=== PATIENT | male | born 1955 | race Two or more races ===

== ENCOUNTER 2016-05-23 07:30 | Inpatient (IN) | payer OTHER ==
[~2016-05-23] VITALS: Ht 172.7 cm; Wt 92.5 kg
[2016-09-18] VITALS (14 sets, daily range): BP systolic 129–143; BP diastolic 61–81
[2016-09-18] MEDS ORDERED: ceFAZolin sod 2 GM in D5W 110 ML IVPB ONE (07:00)
[2016-09-18] MEDS ORDERED: SIMVASTATIN10 MG ORAL (10:34)
[2016-09-18] MEDS ORDERED: JANUVIA100 MG ORAL (10:34)
[2016-09-18] MEDS ORDERED: GLIPIZIDE XL10 MG ORAL (10:42)
[2016-09-18] MEDS ORDERED: LISINOPRIL20 MG ORAL (10:42)
[2016-09-18] MEDS ORDERED: METFORMIN HCL1000 M3 PO (10:42)
[2016-09-18] MEDS ORDERED: NORVASC5 MG ORAL (10:42)
[2016-09-18] MEDS ORDERED: FARXIGA10 MG PO (10:42)
[2016-09-18] MEDS ORDERED: Bupivacaine w/Epi 0.5% 30ml Vial INJ ONE (10:53)
[2016-09-18] MEDS ORDERED: Bacitracin 50000 Units Vial ONE (10:53)
[2016-09-18] MEDS ORDERED: Vancomycin 1gm inj IVPB ONE (10:53)
[2016-09-18] MEDS ORDERED: Thrombin 5000 units TOPIC ONE (10:53)
[2016-09-18] MEDS ORDERED: Surgicel 4in x 8in TOPIC ONE (10:53)
[2016-09-18] MEDS ORDERED: LR 1000ml 1,000 ML IVLG SCH (11:10)
[2016-09-18] MEDS ORDERED: Hydromorphone 0.5mg/0.5ml inj IVP PRN (11:15)
[2016-09-18] MEDS ORDERED: Meperidine 25mg/0.5ml Inj IV PRN (11:15)
[2016-09-18] MEDS ORDERED: LORazepam Inj 2mg/ml 1ml IV PRN (11:15)
[2016-09-18] MEDS ORDERED: LR 1000ml 1,000 ML IV SCH (11:15)
--- NOTE | 2016-09-18 11:15 | Anethesia Preoperative Eval ---
Anesthesia Pre-op PMH/ROS General Date of Evaluation: September 18, 2016 Time of Evaluation: 10:45 Anesthesiologist: Mery ASA Score: ASA 3 Mallampati Score Class I : Soft palate, uvula, fauces, pillars visible Class II: Soft palate, uvula, fauces visible Class III: Soft palate, base of uvula visible Class IV: Only hard plate visible Mallampati Classification: Class II Surgeon: Bishop Diagnosis: HNP, radiculopathy Surgical Procedure: ACDF C5-6, C6-7 Family History: no anesthesia problems Allergies: Coded Allergies: No Known Allergies (Unverified , 09/17/16) Medications: see eMAR Past Medical History Cardiovascular: Reports: HTN, Denies: CAD, DC, arrhythmia, other, valve dz Pulmonary: Denies: COPD, CARLOS, asthma, other Gastrointestinal/Genitourinary: Denies: CRI, ESRD, GERD, other Neurologic/Psychiatric: Denies: CVA, TIA, dementia, depression/anxiety, other Endocrine: Reports: DM, Denies: hypothyroidism, other, steroids HEENT: Denies: [place] (L), [place] (R), cataract (L), cataract (R), glaucoma, other Hematology/Immune: Denies: DVT, anemia, bleeding disorder, other Musculoskeletal/Integumentary: Denies: DDD, DJD, OA, RA, edema, other PMH Narrative: HTN, DM PSxH Narrative: Eye surgery Anesthesia Pre-op Phys. Exam Physician Exam Last Vital Signs Date Time Temp Pulse Resp B/P Pulse Ox O2 Delivery O2 Flow Rate FiO2 09/18/16 10:15 98.2 79 18 142/67 96 Room Air Constitutional: NAD Neurologic: CN 2-12 intact Cardiovascular: RRR, no M/R/G Respiratory: CTA Gastrointestinal: S/NT/ND Airway Exam Mallampati Score: Class II MO: full ROM: full Dentures: lower, upper Anesthesia Pre-op A/P Labs No contraindication Studies Pre-op Studies: EKG - SR, RBBB Risk Assessment & Plan Assessment: HTN, diabetic male for ACDF Plan: GETA, Propofol drip Status Change Before Surgery: No Pre-Antibiotics Drug: Ancef Given Within 1 Hr of Incision: Yes CRISTIAN TEJADA M.D. September 18, 2016 11:15
--- NOTE | 2016-09-18 11:16 | Immediate Post-Op Evaluation ---
Immediate Post-Op Evalulation Immediate Post-Op Evalulation Procedure: ACDF C5-6, C6-7 Date of Evaluation: September 18, 2016 Time of Evaluation: 14:30 IV Fluids: 1300 Estimated Blood Loss: 40 Blood Pressure Systolic: 143 Blood Pressure Diastolic: 65 Pulse Rate: 96 Respiratory Rate: 20 O2 Sat by Pulse Oximetry: 100 Temperature (Fahrenheit): 97.8 Pain Score (1-10): 0 Nausea: No Vomiting: No Complications No complication Patient Status: reacts, patent, extubated, none Hydration Status: adequate Drug: Ancef Given Within 1 Hr of Incision: Yes Time Given: 12:20 CRISTIAN TEJADA M.D. September 18, 2016 11:16
[2016-09-18] MEDS ORDERED: NS Irrig 1000ml ONE (11:50)
[2016-09-18] MEDS ORDERED: Sterile Water Irrig 1000ml IRRIG ONE (11:50)
[2016-09-18] MEDS ORDERED: fentaNYL 100 mcg/2 mL IV ONE (11:50)
[2016-09-18] MEDS ORDERED: Propofol 10mg/ml 100ml btl IV ONE (11:50)
[2016-09-18] MEDS ORDERED: Midazolam 2mg/2ml Inj ONE (11:50)
[2016-09-18] MEDS ORDERED: Nimbex 2mg/ml Inj 10ML IVP ONE (11:50)
[2016-09-18] MEDS ORDERED: Glycopyrrolate 0.2mg/ml 1ml Vial ONE (11:50)
[2016-09-18] MEDS ORDERED: LR 1000ml ONE (11:50)
[2016-09-18] MEDS ORDERED: Neostigmine 1mg/ml 10ml Inj ONE (11:50)
--- NOTE | 2016-09-18 12:02 | Pre-Procedure Note/Attestation ---
Pre-Procedure Note/Attestation Complete Prior to Procedure Planned Procedure: not applicable Procedure Narrative: Anterior Cervical Discectomy and Fusion of C56 and 67 with allograft bone Indications for Procedure Pre-Operative Diagnosis: Herniation C56,67 Attestation I attest that I discussed the nature of the procedure; its benefits; risks and complications; and alternatives (and the risks and benefits of such alternatives ), prior to the procedure, with the patient (or the patient's legal in home sales representative). I attest that, if there was a reasonable possibility of needing a blood transfusion, the patient (or the patient's legal in home sales representative) was given the [facility] standardized written summary, pursuant to the [place] Blood Safety Act ([place] Health and Safety Code # 1645, as amended). I attest that I re-evaluated the patient just prior to the surgery and that there has been no change in the patient's H&P, except as documented below: BLAKE OLIVIER September 18, 2016 12:02
--- NOTE | 2016-09-18 12:03 | Brief Operative Note ---
Immediate Post Operative Note Operative Note Chief Complaint: neck pain and radiculopathy Pre-op Diagnosis: Herniation C56,67 Procedure: Anterior Cervical Discectomy and Fusion of C56 and 67 with allograft bone Post-op Diagnosis: same as pre-op Findings: consistent w/pre-op dx studies Surgeon: Bishop Export Freight Manager: Dino Anesthesiologist: Melody Ordonez Anesthesia: general Specimen: none Complications: none Condition: stable Implant(s) used?: Yes - Nuvasive interlock c sz 6x2 [id number] Zheng September 18, 2016 12:03
--- NOTE | 2016-09-18 15:27 | Diagnostic Imaging Report ---
Indication: Neck Pain Findings: Fluoroscopic views of the cervical spine were obtained. Localization of C5-6 followed by anterior screw fixation at 2 levels (C5-6 and C6-7) for fusion noted. Impression: Intraoperative imaging
[2016-09-18] MEDS ORDERED: HYDROmorphone 1mg/ml Carpuject IVP PRN (17:00)
[2016-09-18] MEDS ORDERED: HYDROmorphone 1mg/ml Carpuject SUBQ PRN (17:00)
[2016-09-18] MEDS ORDERED: Metoclopramide 10mg/2ml Inj IVP PRN (17:00)
[2016-09-18] MEDS ORDERED: Naloxone 0.4mg/ml Inj IVP PRN (17:00)
[2016-09-18] MEDS ORDERED: Milk of Magnesia 30ml Ud ORAL PRN (17:00)
[2016-09-18] MEDS ORDERED: Norco 7.5mg/325mg tab ORAL PRN ×2 (17:00)
[2016-09-18] MEDS ORDERED: Norco 5mg/325mg tab ORAL PRN (17:00)
[2016-09-18] MEDS: NS w/KCl 20mEq 1,000 ML IV SCH (17:46)
[2016-09-18] MEDS: Docusate 100mg cap ORAL SCH (17:48)
--- NOTE | 2016-09-18 19:33 | History and Physical ---
History of Present Illness General Date patient seen: September 18, 2016 Time patient seen: 19:33 Present Illness Allergies: Coded Allergies: No Known Allergies (Unverified , 09/17/16) Medication History Scheduled Amlodipine Besylate (Norvasc), 5 MG ORAL DAILY, (Reported) Dapagliflozin Propanediol (Farxiga), 10 MG PO DAILY, (Reported) Glipizide (Glipizide), 5 MG ORAL BID, (Reported) Lisinopril (Lisinopril*), 20 MG ORAL DAILY, (Reported) Metformin HCl (Metformin HCl ER), 1,000 MG PO BID, (Reported) Simvastatin (Zocor), 10 MG ORAL BEDTIME, (Reported) Sitagliptin (Januvia), 100 MG ORAL DAILY, (Reported) Patient History Healthcare decision maker Resuscitation status Full Code Advanced Directive on File No Physical Exam Last 24 Hour Vital Signs Date Time Temp Pulse Resp B/P Pulse Ox O2 Delivery O2 Flow Rate FiO2 09/18/16 16:30 96.8 87 19 142/80 97 Room Air 09/18/16 16:20 88 15 135/75 100 Nasal Cannula 3.0 09/18/16 16:00 97.2 85 18 142/70 100 Nasal Cannula 3.0 09/18/16 15:45 83 15 137/72 100 Nasal Cannula 3.0 09/18/16 15:30 88 15 135/75 100 Nasal Cannula 3.0 09/18/16 15:15 85 14 133/67 100 Nasal Cannula 3.0 09/18/16 15:10 81 15 132/72 100 Simple Mask 6.0 09/18/16 15:10 97.3 09/18/16 15:10 97.3 09/18/16 15:00 89 14 143/71 100 Nasal Cannula 3.0 09/18/16 14:50 85 17 134/73 100 Simple Mask 6.0 09/18/16 14:40 90 16 137/64 100 Simple Mask 09/18/16 14:35 97 19 142/65 100 Simple Mask 09/18/16 14:33 96 20 100 09/18/16 14:30 97.8 79 16 129/61 100 Simple Mask 09/18/16 10:15 98.2 79 18 142/67 96 Room Air Height (Feet): 5 Height (Inches): 8.00 Weight (Pounds): 204 Medications Current Medications Medications (Trade) Dose Ordered Sig/Eyad Route PRN Reason Start Time Stop Time Status Last Admin Dose Admin Acetaminophen (Tylenol) 650 mg Q4H PRN ORAL headache or temp>101 09/18/16 17:00 10/18/16 16:59 Acetaminophen/ Hydrocodone Bitart ([place] 5/325) 1 tab Q3H PRN ORAL pain score 1-3 09/18/16 17:00 09/25/16 16:59 Acetaminophen/ Hydrocodone Bitart ([place] 7.5/325) 1 ea Q3H PRN ORAL pain score 4-6 09/18/16 17:00 09/25/16 16:59 Acetaminophen/ Hydrocodone Bitart ([place] 7.5/325) 2 ea Q3H PRN ORAL pain scale 7-10 09/18/16 17:00 09/25/16 16:59 Carisoprodol (Soma) 350 mg Q8H PRN ORAL SPASM 09/18/16 17:00 10/18/16 16:59 Cefazolin Sodium/ Dextrose (Ancef/D5W) 55 ml @ 110 mls/hr Q8H IV 09/18/16 20:00 09/19/16 12:29 Dextrose (Dextrose 50%) STAT PRN IV Hypoglycemia 09/18/16 19:15 10/18/16 19:14 Docusate Sodium (Colace) 100 mg TWICE A DAY ORAL 09/18/16 18:00 10/18/16 17:59 09/18/16 17:48 Hydromorphone HCl (Dilaudid) 1 mg Q4H PRN SUBQ Mild Pain (Pain Scale 1-3) 09/18/16 17:00 09/25/16 16:59 Hydromorphone HCl (Dilaudid) 2 mg Q3H PRN SUBQ Severe Pain (Pain Scale 7-10) 09/18/16 17:00 09/25/16 16:59 Hydromorphone HCl (Dilaudid) 2 mg Q4H PRN SUBQ Moderate Pain (Pain Scale 4-6) 09/18/16 17:00 09/25/16 16:59 Hydromorphone HCl 1 mg 1 mg Q2H PRN IVP SEVERE BREAKTHROUGH PAIN 09/18/16 17:00 09/25/16 16:59 Insulin Aspart (NovoLOG) BEFORE MEALS AND HS SUBQ 09/18/16 21:00 10/18/16 20:59 Magnesium Hydroxide (Mom) 30 ml QIDPRN PRN ORAL Constipation 09/18/16 17:00 10/18/16 16:59 Metoclopramide HCl (Reglan) 10 mg Q6H PRN IVP Nausea & Vomiting 09/18/16 17:00 10/18/16 16:59 Naloxone HCl (Narcan) 0.1 mg PRN PRN IVP RR<12/min, pt unarousable 09/18/16 17:00 10/18/16 16:59 Ondansetron HCl (Zofran) 4 mg Q6H PRN IVP Nausea & Vomiting 09/18/16 17:00 10/18/16 16:59 Sodium Chloride (NS w/KCl 20mEq) 1,000 ml @ 100 mls/hr Q10H IV 09/18/16 18:00 10/18/16 17:59 09/18/16 17:46 Temazepam (Restoril) 15 mg HSPRN PRN ORAL Insomnia 09/18/16 21:00 09/25/16 20:59 Ashley Motta M.D. September 18, 2016 19:33
[2016-09-18] MEDS: NovoLOG Insulin Flexpen SUBQ SCH (21:00)
[2016-09-18] MEDS: ceFAZolin sod 1 GM in D5W 55 ML IV SCH (21:00)
[2016-09-19 00:29] VITALS: BP 132/79
[2016-09-19 04:00] VITALS: BP 135/82
[2016-09-19] MEDS: ceFAZolin sod 1 GM in D5W 55 ML IV SCH (04:01)
[2016-09-19] MEDS: NS w/KCl 20mEq 1,000 ML IV SCH (04:01)
[2016-09-19] MEDS: NovoLOG Insulin Flexpen SUBQ SCH ×2 (06:30→11:30)
[2016-09-19 08:00] VITALS: BP 144/80
--- NOTE | 2016-09-19 08:04 | 48 Hour Post Anesthesia Eval ---
Post Anesthesia Evaluation Procedure: ACDF C5-6, C6-7 Date of Evaluation: September 19, 2016 Time of Evaluation: 06:25 Blood Pressure Systolic: 135 0: 82 Pulse Rate: 106 Respiratory Rate: 19 Temperature (Fahrenheit): 97.9 O2 Sat by Pulse Oximetry: 97 Airway: patent Nausea: No Vomiting: No Pain Intensity: 3 Hydration Status: adequate Cardiopulmonary Status: at baseline Mental Status/LOC: patient returned to baseline Post-Anesthesia Complications: 0 Follow-up care needed: N/A - further care as per primary team SLAVA SMITH M.D. September 19, 2016 08:04
[2016-09-19] MEDS: Docusate 100mg cap ORAL SCH (08:36)
[2016-09-19 12:00] VITALS: BP 131/74
[2016-09-19] MEDS ORDERED: Tubing IV Secondary IV ONE (13:09)
--- NOTE | 2016-09-19 19:48 | Operative Note - Dictated ---
DATE OF OPERATION: 09/18/2016 SURGEON: Cody Alas M.D., orthopedic spine surgeon. SOCIAL SCIENCE TEACHER: Augusto Sun M.D. PREOPERATIVE DIAGNOSES: 1. Intractable neck pain. 2. Radiculopathy. 3. Herniation, C5-6 and C6-7. 4. Neural foraminal stenosis, C5-6 and C6-7. POSTOPERATIVE DIAGNOSES: 1. Intractable neck pain. 2. Radiculopathy. 3. Herniation, C5-6 and C6-7. 4. Neural foraminal stenosis, C5-6 and C6-7. PROCEDURE PERFORMED: 1. Anterior cervical discectomy and fusion of C5-6 and C6-7 using NuVasive Interlock-C cage, size 6 with Osteocel and also a total of six 14 mm screws. 2. Use of intraoperative microscope. 3. Motor evoked potential monitoring. 4. Somatosensory evoked potential monitoring. 5. Supervision and interpretation of fluoroscopy. COMPLICATIONS: None. ANESTHESIA: General. ESTIMATED BLOOD LOSS: Less than 100 mL. INDICATIONS FOR SURGERY: This patient is a 61-year-old male who has a history of intractable neck pain; radiculopathy; herniation, C5-6 and C6-7; and neural foraminal stenosis, C5-6 and C6-7. We tried a course of conservative management but despite this course there was still a significant component of persistent, recalcitrant neck pain and arm pain. The MRI demonstrated significant neural foraminal compromise secondary to disc herniations at C5-6 and C6-7. We had a long discussion with Aldo regarding the risks and benefits of surgery. Our discussion included but was not limited to nonoperative management, chiropractic management, another epidural steroid injection as well definitive management in the form of surgery. We recommended anterior cervical discectomy and fusion of C5-6 and C6-7 using NuVasive Interlock-C cage, size 6 with Osteocel and also a total of six 14-mm screws as final definitive management. We reviewed the risks and benefits of surgery with the patient. Our discussion included a comprehensive review of the clinical issues and the nature of the clinical decision. We reviewed the alternatives, including doing nothing. The patient elected to proceed accordingly with anterior cervical discectomy and fusion of C5-6 and C6-7 using NuVasive Interlock-C cage, size 6 with Osteocel and also a total of six 14-mm screws. We had a long discussion regarding the risks, alternatives and benefits of surgery. Our description of the risks included a discussion in person as well as a signed consent which detailed all pertinent risks from the procedure itself. Briefly, our discussion included but was not limited to infection, bleeding, pseudarthrosis, spinal cord injury, neurovascular injury, dural tear, CSF leak, neuropathy, paralysis, permanent weakness/drop foot/drop arm, paresthesias, blindness, palsy and weakness. The patient understood there may be a need for a revision surgery or additional procedures. Approach-related complications including dysphonia, dysphagia, blindness, permanent vocal cord and neural injury, hematoma, swallowing and breathing difficulty. Medical complications were reviewed including liver, kidney, shock, cardiopulmonary failure, anesthesia complications including , swelling, damage to the musculature, larynx/voice injury or loss, esophagus/throat, trachea, blood vessels and muscles/muscular sprain and lungs/pneumothorax during this surgical procedure; injury to deeper structures may be temporary or permanent. After this review of risks, the patient understood these and elected to proceed. A written and verbal consent was given. We discussed the pros and cons of all the alternatives. We discussed the uncertainties associated with the decision. Afterwards I assessed the patient's understanding and explored their preferences. All questions were answered and no guarantees were given. Medical clearance was obtained prior to surgery. INTRAOPERATIVE FINDINGS: A broad based disc herniation which was found posterior to a tear/rent in the posterior longitudinal ligament causing a considerable amount of neural foraminal stenosis with significant encroachment on the neural foramina and spinal cord. DESCRIPTION OF PROCEDURE: Under the benefit of general endotracheal anesthesia and with the assistance of the entire operative team, the patient was moved from the [facility] onto the operative table in the supine position. The head was secured and carefully positioned appropriately. Bilateral arms were secured with GelPads and foam and all bony prominences were padded. For the bilateral lower extremities SCD and INOCENTE hose were placed for DVT prophylaxis. A surgical timeout was called which corroborated our planned procedure of anterior cervical discectomy and fusion of C5-6 and C6-7 using NuVasive Interlock-C cage, size 6 with Osteocel and also a total of six 14-mm screws. Preoperative antibiotics were administered within 30 minutes of the incision for antibiotic prophylaxis. Using lateral fluoroscopic radiography, the operative levels were delineated. Next the wound was prepped and draped with Chlorhexidine and sterile drapes. An incision was based on lateral fluoroscopy and we centered our incision at the C5-6 and C6-7 interspace and next using a standard Quiroz-Hensley anterior based approach the incision was taken down through the skin and subcutaneous tissues until the vertebral bodies and their corresponding disc spaces were visualized. A needle was placed into the interspace to confirm placement of the operative interspace and we performed the remainder of procedure under microscopic visualization. Next, using a bipolar and Bovie cautery to ensure meticulous hemostasis, the longus colli was mobilized bilaterally and retractors were placed deep to the longus colli bilaterally to address retraction. Next we turned our attention to the radical anterior discectomy. This was initially performed at C5-6. First by using a 15 blade scalpel followed by narrow pituitaries and a micro-sect 5-B curette was used to denude the endplate of all cartilaginous tissue. An endplate preparation was performed in the exact same fashion using an intervertebral pug mill operator, sequential distraction was obtained throughout the disc space. We saw a tear/rent in the PLL and this was carefully mobilized and dissected using a micro-set 1-B curet until we visualized a broad-based disc herniation with compression of the spinal cord as well as neural foramina, which was left more than right sided. This neural foraminal compression was carefully resected using a Kerrison-1 and Kerrison-2 rongeurs until complete decompression of the spinal cord was visualized and complete decompression of the neural foramina and nerve root therein as well as the axilla and lateral margin of the nerve root was visualized and subsequently completely decompressed. The family was notified at one hour intervals throughout the procedure to provide for consistent updates. Next we turned our attention to the radical anterior discectomy at the C6-7 level. First by using a 15 blade scalpel followed by narrow pituitaries and a micro-sect 5-B curette was used to denude the endplate of all cartilaginous tissue. An endplate preparation was performed in the exact same fashion using an intervertebral pug mill operator, sequential distraction was obtained throughout the disc space. We saw a tear/rent in the PLL and this was carefully mobilized and dissected using a micro-set 1-B curet until we visualized a broad-based disc herniation with compression of the spinal cord as well neural foramina, which was left worse than right sided. This neural foraminal compression was carefully resected using a Kerrison-1 and Kerrison-2 rongeurs until complete decompression of the spinal cord was visualized and complete decompression of the neural foramina and nerve root therein as well as the axilla and lateral margin of the nerve root was visualized and subsequently completely decompressed. We next turned our attention towards trialing our implant within the disc space. We initially tried size 5 and afterwards size 6 trial from the IkanosVasive system at each level, which appeared to be appropriate under AP and lateral fluoroscopy as well as in terms of its height, depth, width and lack of toggle. The PEEK polyetheretherketone interbody cages were then both packed with allograft bone from Osteocel and local autograft bone matrix. Next these were then carefully advanced and secured into their intervertebral spaces under direct visualization and with supervision of AP and lateral fluoroscopic views. We next turned our attention towards plating. Plating was performed with [email or web address] interlock-C plating system. A total of 6 screws, size 14 mm in length were inserted and confirmed under AP and lateral fluoroscopy and confirmed to be in excellent position. After a finger sweep we confirmed removal of all sponges. The retractor was removed and we next turned our attention to meticulous hemostasis with FloSeal and bipolar cautery. After the sponge and needle count was again found to be correct with our second count, we next turned our attention to closure. The wound was again copiously irrigated with antibiotic impregnated saline. Closure consisted of 4-0 clear nylon for the platysma, and 6-0 clear nylon for the superficial skin. Final skin closure and dressings consisted of Dermabond. Prior to final closure, a final radiograph was obtained which demonstrated the hardware is intact with excellent position throughout. The patient tolerated the procedure well. The patient was carefully extubated after the conclusion of surgery. We discussed the findings of the surgery with the family upon completion of the case. At this point the patient was transferred to the spine floor for further observation. Cody Alas M.D. DR: EVERETTE JOB#: [id number] CC:
--- NOTE | 2016-09-20 00:18 | Discharge Summary ---
DATE OF ADMISSION: 09/18/2016 DATE OF DISCHARGE: 09/19/2016 PROCEDURE PERFORMED DURING ADMISSION: ACDF, C5-6 and C6-7. REASON FOR ADMISSION: Herniated disc, C5-6 and C6-7. DISCHARGE PHYSICAL EXAM: 1. Patient was ambulating with and without the assistance of physical therapy. 2. Prior to discharge home incision was clean and dry with minimal swelling. 3. Follows commands. 4. Alert and oriented. 5. [place] discontinued, voiding. 6. Incentive spirometer at bedside. 7. IVF hep locked. MOTOR: Demonstrates expected postoperative bulk and tone. Moves biceps, triceps, and deltoid musculature on command. Moves hip flexors, quadriceps, tibialis anterior, EHL, gastrocsoleus musculature on command as well. TREATMENT RENDERED: 1. Daily nursing care. 2. Physical Therapy. 3. Occupational Therapy. 4. Intravenous medications. 5. Oral medications. 6. Daily postoperative examinations by Spine surgery team. CONDITION OF PATIENT ON DISCHARGE: The condition on discharge is stable for discharge to home. DISCHARGE INSTRUCTIONS: Our specific instructions relating to physical activity, medications diet and follow-up care are detailed in our standard operative folder and were given to this patient prior to surgery. We will however summarize these briefly as stated below. Regarding physical activity we would like the patient to limit their flexion, extension and rotation. We also require a limitation on their bending lifting and twisting. All medication has been called in prior to surgery to their pharmacy of choice. They can resume their regular diet once tolerated. We would like them to shower and limit soaking the wound in a tub/Jacuzzi/the ocean for a period of one month or until the incision is completely healed. We will have them follow up in our office in three weeks time for their regularly scheduled appointment. They understand to call our office tomorrow to schedule the time for their three week followup appointment. The patient will notify us should they experience any increase in the severity of pain, redness/swelling/ or drainage from their incision. Cody Alas M.D. DR: SHERRELL JOB#: [id number] CC:
== END 2016-09-19 13:10 | disposition home or self-care (01) | DRG 473 ==
LOC: EDBD 09-18 09:45 → SDSOVERFLO 09-18 09:45 → 3E 09-18 16:00
DX: M50.122 Cervical disc disorder at C5-C6 level with radiculopathy (principal); M48.02 Spinal stenosis, cervical region; I10 Essential (primary) hypertension; E11.9 Type 2 diabetes mellitus without complications; E78.00 Pure hypercholesterolemia, unspecified; Z87.891 Personal history of nicotine dependence
CPT/HCPCS: 36415; 72040; 76001; 82962; 83036; 86850; 86900; 86901; 87081; 94003; 94150; J1815; J2180; J2250; J2405; J2710